=== PATIENT | male | born 1935 | race African-American/Black ===

== ENCOUNTER 2016-05-16 11:39 | Emergency (ER) | payer OTHER ==
[~2016-05-16] VITALS: Ht 185.4 cm; Wt 86.2 kg
--- NOTE | ~2016-05-16 | EKG ---
[address] [address] [employer] [place] [address] ELECTROCARDIOGRAM REPORT Name: GUY NUNEZ Room #: [facility]#: [id number] Admission: 05/16/16 Attend Phys: Discharge: Date of : 35 Report #: [id number] THIS REPORT FOR: //name// [facility] ED Test Date: 2016-05-16 Test Time: 11:48:11 Pat Name: GUY NUNEZ Department: Room: Gender: Eyelet Operator: Eric RBODY : 1935 Requested By: Mary Taylor Order Number: [id number] MD: Reynold Domínguez Measurements Intervals [place] Rate: 67 P: -1 [place]: 163 QRS: -6 QRSD: 105 T: 59 QT: 420 QTc: 444 Interpretive Statements Sinus rhythm Probable left atrial enlargement Abnormal R-wave progression, early transition Compared to ECG 05/03/2016 01:05:00 T-wave abnormality no longer present Electronically Signed On 05-16-2016 12:45:24 CDT by Reynold Domínguez [email or web address] <ELECTRONICALLY SIGNED> By: Reynold Domínguez MD 05/16/16 1245 1148 1148 MD DAVE Martinez
[~2016-05-16 11:39] MED LIST: AGGRENOX 25 MG1 EACH; AGGRENOX 25 MG1 EACH PO; AMLODIPINE BESY10 MG PO; ANTIFUNGAL15 G1 TP; ASPIR 8181 MG PO; BISACODYL SUPP10 MG RECTAL; CARVEDILOL12.5 MG PO; CARVEDILOL25 MG PO; CATAPRES0.2 MG PO; COLACE 100 MG100 MG PO; COLACE100 MG PO; DIDN'T BRING MEDS; FLOMAX0.4 MG PO; GLUCOTROL10 MG PO; GLUCOTROL5 MG PO; HYDRALAZINE 2525 MG; HYDRALAZINE 2525 MG PO; HYDROCHLOROTHIA25 M1 PO; KEPPRA 500 MG500 M1 PO; LASIX 40 MG TAB40 M2 PO; LIPITOR 20 MG T20 M1 PO; LIQUID ANTACID355 ML PO; LISINOPRIL20 MG PO; LISINOPRIL40 MG PO; MILK OF MA2400 MG/10 PO; NORVASC5 MG PO; PEPCID20 MG PO; PERCOCET PO; SENNA LAXATIVE1 EACH PO; SIMVASTATIN40 MG PO; TYLENOL325 MG PO
[2016-05-16 12:05] LABS: ABSOLUTE NEUTROPHILS 3.6 thou/uL (1.4-8.2); EOSINOPHILS 2.7 % (0.0-3.0); HEMOGLOBIN 16.1 gm/dL (14.0-18.0); LYMPHOCYTES 15.3 % (24.0-44.0); MCH 29.1 pg (26.0-34.0); MCHC 33.5 g/dL (28.0-37.0); MCV 86.8 fL (80.0-100.0); MONOCYTES 10.6 % (1.0-8.0); PLATELET COUNT 145 thou/uL (150-400); POLYS 70.4 % (36.0-66.0); RBC 5.53 mil/uL (4.50-6.00); RDW 13.9 % (10.5-14.5); WBC 5.1 thou/uL (4.0-11.0)
[2016-05-16 12:07] LABS: MANUAL DIFF NO
[2016-05-16 12:15] LABS: CALCIUM 9.6 mg/dL (8.5-10.1); CREATININE 1.2 mg/dL (0.6-1.3); POTASSIUM 3.7 mmol/L (3.5-5.1)
== END 2016-05-16 14:02 | disposition home or self-care (01) ==
LOC: ER 11:39
PROVIDERS: Emergency Medicine
DX: R55 Syncope and collapse (principal); I63.9 Cerebral infarction, unspecified; I10 Essential (primary) hypertension; E11.9 Type 2 diabetes mellitus without complications; K21.9 Gastro-esophageal reflux disease without esophagitis

== ENCOUNTER → 2016-05-29 | Outpatient (CLI) | payer OTHER | LOC: LAB 08:25 → LABMALL 13:40 → LAB 15:29 | DX: R41.3 Other amnesia (principal); R56.9 Unspecified convulsions; I63.9 Cerebral infarction, unspecified; F01.50 Vascular dementia, unspecified severity, without behavioral disturbance, psychotic disturbance, mood disturbance, and anxiety; I66.9 Occlusion and stenosis of unspecified cerebral artery ==

== ENCOUNTER 2016-07-15 15:56 | Emergency (ER) | payer OTHER ==
[~2016-07-15] VITALS: Ht 185.4 cm; Wt 90.7 kg
--- NOTE | ~2016-07-15 | EKG ---
[place] [address] [facility] [place] [address] ELECTROCARDIOGRAM REPORT Name: ENRIQUEGUY [place] [facility]: [facility]#: [id number] Admission: 07/15/16 Attend Phys: Discharge: 07/15/16 Date of : 35 Report #: [id number] THIS REPORT FOR: //name// [facility] ED Test Date: 2016-07-15 Test Time: 16:01:29 Pat Name: GUY NUNEZ Department: Room: Gender: M Lead Generator: [facility] : 1935 Requested By: Js Mantilla Order Number: [id number] MD: Richard Cohn Measurements Intervals [place] Rate: 69 P: -3 [place]: 168 QRS: -7 QRSD: 106 T: 71 QT: 415 QTc: 445 Interpretive Statements Sinus rhythm Probable left atrial enlargement Abnormal R-wave progression, early transition Minimal ST depression, lateral leads Compared to ECG 05/16/2016 11:48:11 No significant change was found Electronically Signed On 07-16-2016 7:48:04 CDT by Richard Cohn [email or web address] <ELECTRONICALLY SIGNED> By: Richard Cohn MD, [facility] 07/16/16 0748 1601 1601 Richard Cohn MD, [facility] /EPI
[2016-07-15 16:12] LABS: URINE BILIRUBIN NEGATIVE (Negative); URINE BLOOD TRACE (Negative); URINE COLOR YELLOW; URINE GLUCOSE-RANDOM* NEGATIVE (Negative); URINE KETONES NEGATIVE (Negative); URINE NITRITE NEGATIVE (Negative); URINE PROTEIN (DIPSTICK) TRACE (Negative); URINE SPECIFIC GRAVITY 1.015 (1.003-1.035); URINE UROBILINOGEN 0.2 E.U./dl (0.2-1.0)
[2016-07-15 16:20] LABS: AMP/METHAMP Negative (Negative); BARBITURATES Negative (Negative); BENZODIAZEPINES Negative (Negative); COCAINE Negative (Negative); METHADONE Negative (Negative); OPIATES Negative (Negative); PCP Negative (Negative); THC Negative (Negative)
[2016-07-15 16:38] LABS: HEMATOCRIT 50.3 % (42.0-52.0); HEMOGLOBIN 16.9 gm/dL (14.0-18.0); MCH 29.7 pg (26.0-34.0); MCHC 33.6 g/dL (28.0-37.0); MCV 88.3 fL (80.0-100.0); PLATELET COUNT 131 thou/uL (150-400); RBC 5.69 mil/uL (4.50-6.00); RDW 14.7 % (10.5-14.5); WBC 4.9 thou/uL (4.0-11.0)
[2016-07-15 16:39] LABS: MANUAL DIFF YES
[2016-07-15 16:45] LABS: ANION GAP 7 mmol/L (7-16); BUN 22 mg/dL (7-18); CALCIUM 9.6 mg/dL (8.5-10.1); CHLORIDE 106 mmol/L (98-107); CO2 27 mmol/L (21-32); CREATININE 1.3 mg/dL (0.7-1.3); GLUCOSE 101 mg/dL (74-106); POTASSIUM 4.3 mmol/L (3.5-5.1); SODIUM 140 mmol/L (136-145)
[2016-07-15 16:51] LABS: APTT 31.5 Seconds (24.5-32.8); INR 1.3; PROTIME 13.3 Seconds (9.3-11.4)
[2016-07-15 16:54] LABS: ALBUMIN 4.1 g/dL (3.4-5.0); ALKALINE PHOSPHATASE 70 U/L (46-116); MAGNESIUM 2.3 mg/dL (1.8-2.4); SGOT 17 U/L (15-37); SGPT 14 U/L (30-65); TOTAL BILIRUBIN 0.8 mg/dL (<0.1-1.0); TOTAL PROTEIN 8.3 g/dL (6.4-8.2); TROPONIN-I < 0.04 ng/mL (<0.04-0.07)
[2016-07-15] MEDS ORDERED: BUTALB-APAP-CA1 EACH PO (16:55)
[2016-07-15] MEDS ORDERED: CLONIDINE0.1 PO (16:55)
[2016-07-15 17:11] LABS: ABSOLUTE NEUTROPHILS 3.2 thou/uL (1.4-8.2); PLATELET ESTIMATE SLIGHTLY DECREASED; TOTAL CELL COUNT 100
== END 2016-07-15 19:37 | disposition home or self-care (01) ==
LOC: ER 15:56
PROVIDERS: Emergency Medicine
DX: I10 Essential (primary) hypertension (principal); R51 Headache; Z86.73 Personal history of transient ischemic attack (TIA), and cerebral infarction without residual deficits; E11.9 Type 2 diabetes mellitus without complications; K21.9 Gastro-esophageal reflux disease without esophagitis

== ENCOUNTER 2016-07-31 13:19 | Emergency (ER) | payer OTHER ==
[~2016-07-31] VITALS: Ht 185.4 cm; Wt 88.5 kg
[~2016-07-31 13:19] MED LIST changes: +BUTALB-APAP-CA1 EACH PO; +CLONIDINE0.1 PO
[2016-07-31] MEDS ORDERED: APAP500 PO (13:47)
[2016-07-31 14:14] LABS: HEMATOCRIT 46.3 % (42.0-52.0); HEMOGLOBIN 15.5 gm/dL (14.0-18.0); MCH 29.3 pg (26.0-34.0); MCHC 33.4 g/dL (28.0-37.0); MCV 87.5 fL (80.0-100.0); PLATELET COUNT 140 thou/uL (150-400); RBC 5.29 mil/uL (4.50-6.00); RDW 14.6 % (10.5-14.5); WBC 3.8 thou/uL (4.0-11.0)
[2016-07-31 14:15] LABS: MANUAL DIFF YES
[2016-07-31 14:21] LABS: CALCIUM 9.3 mg/dL (8.5-10.1); CREATININE 1.2 mg/dL (0.7-1.3); POTASSIUM 3.6 mmol/L (3.5-5.1)
[2016-07-31 14:37] LABS: ABSOLUTE NEUTROPHILS 2.3 thou/uL (1.4-8.2); TOTAL CELL COUNT 100
== END 2016-07-31 15:17 | disposition home or self-care (01) ==
LOC: ER 13:19
PROVIDERS: Physician Assistant
DX: R51 Headache (principal); I10 Essential (primary) hypertension; E11.9 Type 2 diabetes mellitus without complications; K21.9 Gastro-esophageal reflux disease without esophagitis; Z86.73 Personal history of transient ischemic attack (TIA), and cerebral infarction without residual deficits

== ENCOUNTER 2016-08-03 10:22 | Emergency (ER) | payer OTHER ==
[~2016-08-03] VITALS: Ht 185.4 cm; Wt 86.2 kg
[~2016-08-03 10:22] MED LIST changes: +APAP500 PO
== END 2016-08-03 11:22 | disposition home or self-care (01) ==
LOC: ER 10:22
DX: K59.00 Constipation, unspecified (principal); I10 Essential (primary) hypertension; E11.9 Type 2 diabetes mellitus without complications; K21.9 Gastro-esophageal reflux disease without esophagitis; Z86.73 Personal history of transient ischemic attack (TIA), and cerebral infarction without residual deficits

== ENCOUNTER → 2016-08-11 | Outpatient (CLI) | payer OTHER | LOC: MRI 08-04 12:37 | DX: G43.909 Migraine, unspecified, not intractable, without status migrainosus (principal); F03.90 Unspecified dementia, unspecified severity, without behavioral disturbance, psychotic disturbance, mood disturbance, and anxiety; R56.9 Unspecified convulsions ==

== ENCOUNTER 2016-08-20 02:13 | Observation (INO) | payer OTHER ==
[2016-08-20] VITALS (8 sets, daily range): BP systolic 150–198; BP diastolic 83–101
[~2016-08-20] VITALS: Ht 185.4 cm; Wt 87.5 kg
--- NOTE | ~2016-08-20 | EKG ---
[address] [address] ELECTROCARDIOGRAM REPORT Name: ALECCHRISGUY Room #: 464-P [facility] [id number] Admission: 08/20/16 Attend Phys: Lorene Bey Discharge: 08/21/16 Date of : 35 Report #: [id number] THIS REPORT FOR: //name// [facility] ED Test Date: 2016-08-20 Test Time: 02:25:27 Pat Name: GUY NUNEZ Department: Room: [facility] Gender: M Counter Server: RONNIE : 1935 Requested By: Buddy Ricks Order Number: [id number] MD: Keshawn Foley Measurements Intervals [place] Rate: 63 P: 32 [place]: 174 QRS: -14 QRSD: 102 T: 80 QT: 428 QTc: 439 Interpretive Statements Sinus rhythm Probable left atrial enlargement Electronically Signed On 08-21-2016 13:48:36 CDT by Keshawn Foley [email or web address] <ELECTRONICALLY SIGNED> By: Keshawn Foley MD 08/21/16 1348 0225 4 MD DAVE Jasmine
[2016-08-20] MEDS ORDERED: ZOFRAN ODT4 MG PO (02:26)
[2016-08-20] MEDS ORDERED: LISINOPRIL40 MG PO (02:26)
[2016-08-20] MEDS ORDERED: PEPCID20 MG PO (02:26)
[2016-08-20] MEDS ORDERED: NEURONTIN 300300 M1 PO (02:27)
[2016-08-20] MEDS ORDERED: ATORVASTATIN CA40 MG PO (02:27)
[2016-08-20] MEDS ORDERED: CARVEDILOL25 MG PO (02:27)
[2016-08-20] MEDS ORDERED: ASPIRIN-DIPYRI1 EACH PO (02:27)
[2016-08-20 02:28] LABS: HEMATOCRIT 46.6 % (42.0-52.0); HEMOGLOBIN 15.4 gm/dL (14.0-18.0); MCH 28.9 pg (26.0-34.0); MCV 87.6 fL (80.0-100.0); PLATELET COUNT 134 thou/uL (150-400); RBC 5.32 mil/uL (4.50-6.00); RDW 14.7 % (10.5-14.5); WBC 4.7 thou/uL (4.0-11.0)
[2016-08-20 02:30] LABS: MANUAL DIFF YES
[2016-08-20 02:36] LABS: ANION GAP 8 mmol/L (7-16); BUN 19 mg/dL (7-18); CALCIUM 9.2 mg/dL (8.5-10.1); CHLORIDE 106 mmol/L (98-107); CO2 27 mmol/L (21-32); CREATININE 1.2 mg/dL (0.7-1.3); GLUCOSE 103 mg/dL (74-106); POTASSIUM 3.8 mmol/L (3.5-5.1); SODIUM 141 mmol/L (136-145)
[2016-08-20 02:43] LABS: ALBUMIN 3.8 g/dL (3.4-5.0); ALKALINE PHOSPHATASE 77 U/L (46-116); MAGNESIUM 2.1 mg/dL (1.8-2.4); SGOT 14 U/L (15-37); SGPT 16 U/L (30-65); TOTAL BILIRUBIN 0.8 mg/dL (<0.1-1.0); TOTAL PROTEIN 7.5 g/dL (6.4-8.2); TROPONIN-I < 0.04 ng/mL (<0.04-0.07)
[2016-08-20 02:50] LABS: ANISOCYTOSIS SLIGHT; TOTAL CELL COUNT 100
[2016-08-20] MEDS ORDERED: KEPPRA 500 MG500 M1 PO (04:11)
[2016-08-20] MEDS ORDERED: ASPIR 8181 M1 PO (04:11)
[2016-08-21 00:45] VITALS: BP 150/87
[2016-08-21 00:50] VITALS: BP 166/88
[2016-08-21 04:29] VITALS: BP 157/78
[2016-08-21 08:07] VITALS: BP 148/73
[2016-08-21] MEDS ORDERED: ZOFRAN ODT4 MG PO (09:49)
[2016-08-21] MEDS ORDERED: PEPCID20 MG PO (09:49)
[2016-08-21] MEDS ORDERED: LISINOPRIL40 MG PO (09:50)
[2016-08-21] MEDS ORDERED: ASPIRIN-DIPYRI1 EACH PO (09:50)
[2016-08-21] MEDS ORDERED: CARVEDILOL25 MG PO (09:50)
[2016-08-21] MEDS ORDERED: NEURONTIN 300300 M1 PO (09:50)
[2016-08-21] MEDS ORDERED: ASPIR 8181 M1 PO (09:50)
[2016-08-21] MEDS ORDERED: KEPPRA 500 MG500 M1 PO (09:50)
[2016-08-21] MEDS ORDERED: HYDRALAZINE 2525 MG PO (09:51)
[2016-08-21] MEDS ORDERED: ATORVASTATIN CA40 MG PO (09:51)
[2016-08-21 10:10] VITALS: BP 148/73
[2016-08-21 12:15] VITALS: BP 163/86
== END 2016-08-21 13:35 | disposition home or self-care (01) ==
LOC: ER 02:13 → EROBS 02:54 → 4W 02:54 → EROBS 02:54 → 4W 03:15
PROVIDERS: Emergency Medicine
DX: I63.9 Cerebral infarction, unspecified (principal); I10 Essential (primary) hypertension; R56.9 Unspecified convulsions; E11.9 Type 2 diabetes mellitus without complications; K21.9 Gastro-esophageal reflux disease without esophagitis; K59.00 Constipation, unspecified

== ENCOUNTER → 2016-10-22 | Outpatient (CLI) | payer OTHER ==
[~2016-10-22] MED LIST changes: +ASPIR 8181 M1 PO; +ASPIRIN-DIPYRI1 EACH PO; +ATORVASTATIN CA40 MG PO; +NEURONTIN 300300 M1 PO; +ZOFRAN ODT4 MG PO
== END ==
LOC: ULTRA 09:46
DX: I63.9 Cerebral infarction, unspecified (principal)

== ENCOUNTER → 2017-11-29 | Outpatient (CLI) | payer OTHER | LOC: MRI 09:23 → CAT 10:15 | DX: G45.9 Transient cerebral ischemic attack, unspecified (principal); I67.82 Cerebral ischemia; I63.9 Cerebral infarction, unspecified; G62.9 Polyneuropathy, unspecified; R56.9 Unspecified convulsions; R26.9 Unspecified abnormalities of gait and mobility; R90.89 Other abnormal findings on diagnostic imaging of central nervous system; I10 Essential (primary) hypertension; E11.9 Type 2 diabetes mellitus without complications; K21.9 Gastro-esophageal reflux disease without esophagitis; Z86.73 Personal history of transient ischemic attack (TIA), and cerebral infarction without residual deficits ==

== ENCOUNTER 2018-06-11 15:37 | Emergency (ER) | payer OTHER ==
[~2018-06-11] VITALS: Ht 188 cm; Wt 95.3 kg
[2018-06-11 17:05] LABS: ANION GAP 8 mmol/L (7-16); BUN 24 mg/dL (7-18); CALCIUM 9.7 mg/dL (8.5-10.1); CHLORIDE 104 mmol/L (98-107); CO2 29 mmol/L (21-32); CREATININE 1.3 mg/dL (0.7-1.3); GLUCOSE 89 mg/dL (74-106); POTASSIUM 3.9 mmol/L (3.5-5.1); SODIUM 141 mmol/L (136-145)
[2018-06-11 17:14] LABS: MAGNESIUM 2.1 mg/dL (1.8-2.4); TROPONIN-I <0.06 ng/mL (<0.06)
[2018-06-11 17:24] LABS: URINE BILIRUBIN NEGATIVE (Negative); URINE BLOOD NEGATIVE (Negative); URINE CLARITY CLEAR; URINE COLOR YELLOW; URINE GLUCOSE-RANDOM* NEGATIVE (Negative); URINE KETONES NEGATIVE (Negative); URINE LEUKOCYTES-REFLEX NEGATIVE (Negative); URINE NITRITE-REFLEX NEGATIVE (Negative); URINE PROTEIN (DIPSTICK) NEGATIVE (Negative); URINE SPECIFIC GRAVITY 1.025 (1.005-1.035); URINE UROBILINOGEN 0.2 E.U./dl (0.2-1.0)
[2018-06-11 17:36] LABS: HEMOGLOBIN 16.4 gm/dL (14.0-18.0); RBC 5.64 mil/uL (4.50-6.00); WBC 4.9 thou/uL (4.0-11.0)
[2018-06-11 17:37] LABS: HEMATOCRIT 49.7 % (42.0-52.0); MCH 29.1 pg (26.0-34.0); MCHC 33.1 % (28.0-37.0); PLATELET COUNT 143 thou/uL (150-400); RDW 14.6 % (10.5-14.5)
[2018-06-11 19:01] VITALS: BP 151/84
--- NOTE | 2018-06-12 10:35 | EKG ---
[place] [address] [address] [place] [address] ELECTROCARDIOGRAM REPORT Name: GUY NUNEZ Room #: DEP CLAUDIA Horowitz#: [id number] ������������������ Admission: 06/11/18 ������������������ Attend Phys: Discharge: 06/11/18 ������������������ Date of : 35 Report #: [id number] ����������������������������������������������������������������� [id number] THIS REPORT FOR: //name// [facility] ED Test Date: 2018-06-11 Test Time: 16:26:52 Pat Name: GUY NUNEZ Department: Room: Gender: M Dining Host: : 1935 Requested By: Ronal Becerra Order Number: [id number] MD: Reynold Domínguez Measurements Intervals [place] Rate: 64 P: 1 MT: 175 QRS: -13 QRSD: 103 T: 58 QT: 427 QTc: 441 Interpretive Statements Sinus rhythm Probable left atrial enlargement Early R to S wave transition Compared to ECG 08/24/2016 10:46:31 No significant change Electronically Signed On 06-12-2018 10:34:52 CDT by Reynold Domínguez [email or web address] ��������������������������������������������� <ELECTRONICALLY SIGNED> ���������������������������������������� By: Reynold Domínguez MD ��������������������������������������������� 06/12/18 1034 1626 1626 MD DAVE Martinez
== END 2018-06-11 19:02 | disposition home or self-care (01) ==
LOC: ER 15:37
PROVIDERS: Emergency Medicine
DX: S09.90XA Unspecified injury of head, initial encounter (principal); I10 Essential (primary) hypertension; E11.9 Type 2 diabetes mellitus without complications; K21.9 Gastro-esophageal reflux disease without esophagitis; Z86.73 Personal history of transient ischemic attack (TIA), and cerebral infarction without residual deficits; Z79.899 Other long term (current) drug therapy; W18.30XA Fall on same level, unspecified, initial encounter; Y93.89 Activity, other specified; Y92.89 Other specified places as the place of occurrence of the external cause; Y99.8 Other external cause status

== ENCOUNTER 2018-10-22 20:16 | Emergency (ER) | payer OTHER ==
[~2018-10-22] VITALS: Ht 188 cm; Wt 98.4 kg
[2018-10-22 20:27] VITALS: BP 115/76
[2018-10-22] MEDS ORDERED: PERIDEX15 ML PO (20:41)
[2018-10-22] MEDS ORDERED: PENICILLIN VK500 M1 PO (20:41)
[2018-10-22] MEDS ORDERED: TRAMADOL 50 MG50 MG PO (20:41)
== END 2018-10-22 21:07 | disposition home or self-care (01) ==
LOC: ER 20:16
DX: K05.10 Chronic gingivitis, plaque induced (principal); K02.9 Dental caries, unspecified; I10 Essential (primary) hypertension; E11.9 Type 2 diabetes mellitus without complications; K21.9 Gastro-esophageal reflux disease without esophagitis; Z86.73 Personal history of transient ischemic attack (TIA), and cerebral infarction without residual deficits

== ENCOUNTER 2019-03-07 18:23 | Emergency (ER) | payer OTHER ==
[~2019-03-07] VITALS: Ht 185.4 cm; Wt 94.8 kg
[~2019-03-07 18:23] MED LIST changes: +PENICILLIN VK500 M1 PO; +PERIDEX15 ML PO; +TRAMADOL 50 MG50 MG PO
[2019-03-07 19:00] LABS: URINE BILIRUBIN NEGATIVE (Negative); URINE BLOOD NEGATIVE (Negative); URINE CLARITY CLEAR; URINE COLOR YELLOW; URINE GLUCOSE-RANDOM* NEGATIVE (Negative); URINE KETONES NEGATIVE (Negative); URINE LEUKOCYTES-REFLEX NEGATIVE (Negative); URINE NITRITE-REFLEX NEGATIVE (Negative); URINE PROTEIN (DIPSTICK) NEGATIVE (Negative); URINE SPECIFIC GRAVITY 1.025 (1.005-1.035)
[2019-03-07 23:01] LABS: HEMATOCRIT 50.3 % (42.0-52.0); HEMOGLOBIN 16.4 gm/dL (14.0-18.0); MCHC 32.6 g/dL (28.0-37.0); MCV 89.1 fL (80.0-100.0); PLATELET COUNT 144 thou/uL (150-400); RBC 5.65 mil/uL (4.50-6.00); RDW 14.6 % (10.5-14.5); WBC 4.1 thou/uL (4.0-11.0)
[2019-03-07 23:17] LABS: ANION GAP 9 mmol/L (7-16); BUN 25 mg/dL (7-18); CALCIUM 9.5 mg/dL (8.5-10.1); CHLORIDE 103 mmol/L (98-107); CO2 29 mmol/L (21-32); CREATININE 1.2 mg/dL (0.7-1.3); GLUCOSE 77 mg/dL (74-106); POTASSIUM 3.8 mmol/L (3.5-5.1); SODIUM 141 mmol/L (136-145)
[2019-03-07 23:27] LABS: ALBUMIN 3.9 g/dL (3.4-5.0); MAGNESIUM 2.2 mg/dL (1.8-2.4); SGOT 20 U/L (15-37); SGPT 18 U/L (30-65); TROPONIN-I <0.06 ng/mL (<0.06)
[2019-03-08 00:36] LABS: PLATELET ESTIMATE DECREASED
[2019-03-08 00:41] VITALS: BP 128/86
--- NOTE | 2019-03-09 17:14 | EKG ---
[place] [address] [facility] [place] [address] ELECTROCARDIOGRAM REPORT Name: ALECCHRISGUY Room #: [facility] CLAUDIA Horowitz#: [id number] Admission: 03/07/19 Attend Phys: Discharge: 03/08/19 Date of : 35 Report #: [id number] THIS REPORT FOR: //name// [facility] ED Test Date: 2019-03-07 Test Time: 21:57:55 Pat Name: GUY NUNEZ Department: Room: Gender: Net Coordinator: LA NENA : 1935 Requested By: Js Mantilla Order Number: [id number] MD: Keshawn Foley Measurements Intervals [place] Rate: 54 P: 13 CT: 184 QRS: -14 QRSD: 106 T: 9 QT: 459 QTc: 435 Interpretive Statements Sinus rhythm Probable left atrial enlargement Left ventricular hypertrophy Compared to ECG 06/11/2018 16:26:52 Left ventricular hypertrophy now present Electronically Signed On 03-09-2019 17:13:20 SURVEY RESEARCH ANALYST by Keshawn Foley [email or web address] <ELECTRONICALLY SIGNED> By: Keshawn Foley MD 03/09/19 1713 56 56 Keshawn Foley MD /ELLA
== END 2019-03-08 00:45 | disposition home or self-care (01) ==
LOC: ER 18:23
PROVIDERS: Emergency Medicine
DX: R42 Dizziness and giddiness (principal); I10 Essential (primary) hypertension; E11.9 Type 2 diabetes mellitus without complications; K21.9 Gastro-esophageal reflux disease without esophagitis; R56.9 Unspecified convulsions; Z86.73 Personal history of transient ischemic attack (TIA), and cerebral infarction without residual deficits

== ENCOUNTER → 2019-04-21 | Outpatient (CLI) | payer OTHER | LOC: SJCVCIMAG 08:32 | DX: I87.2 Venous insufficiency (chronic) (peripheral) (principal); M79.662 Pain in left lower leg; M79.89 Other specified soft tissue disorders ==

== ENCOUNTER 2019-06-15 19:18 | Emergency (ER) | payer OTHER ==
[~2019-06-15] VITALS: Ht 188 cm; Wt 95.3 kg
[2019-06-15 20:20] LABS: ABSOLUTE NEUTROPHILS 5.6 thou/uL (1.4-8.2); BASOPHILS 0.5 % (0.0-2.0); EOSINOPHILS 2.4 % (0.0-3.0); HEMATOCRIT 56.3 % (42.0-52.0); HEMOGLOBIN 19.1 gm/dL (14.0-18.0); LYMPHOCYTES 8.8 % (24.0-44.0); MCH 29.9 pg (26.0-34.0); MCHC 33.9 g/dL (28.0-37.0); MCV 88.5 fL (80.0-100.0); MONOCYTES 5.6 % (1.0-8.0); PLATELET COUNT 200 thou/uL (150-400); POLYS 82.7 % (36.0-66.0); RBC 6.37 mil/uL (4.50-6.00); RDW 14.2 % (10.5-14.5); WBC 6.8 thou/uL (4.0-11.0)
[2019-06-15 20:36] LABS: CALCIUM 9.7 mg/dL (8.5-10.1); CREATININE 1.3 mg/dL (0.7-1.3); POTASSIUM 5.2 mmol/L (3.5-5.1)
[2019-06-15 20:40] LABS: ALBUMIN 4.5 g/dL (3.4-5.0); TOTAL BILIRUBIN 1.1 mg/dL (<0.1-1.0); TOTAL PROTEIN 9.3 g/dL (6.4-8.2)
[2019-06-15 21:31] VITALS: BP 113/94
--- NOTE | 2019-06-17 11:48 | EKG ---
[facility] [place] [address] ELECTROCARDIOGRAM REPORT Name: GUY NUNEZ Room #: DEP MYvonne#: [id number] Admission: 06/15/19 Attend Phys: Discharge: 06/15/19 Date of : 35 Report #: [id number] THIS REPORT FOR: cc: Deloris Sanchez MD, Constance M. MD Couchonnal, Luis F. MD ~ THIS REPORT FOR: //name// [facility] ED Test Date: 2019-06-15 Test Time: 19:39:43 Pat Name: GUY NUNEZ Department: Room: Gender: Food Service Worker: jeannine gonzales : 1935 Requested By: Charles Sanchez Order Number: [id number] : Keshawn Foley Measurements Intervals [place] Rate: 91 P: 2 [place]: 182 QRS: -13 QRSD: 103 T: 50 QT: 375 QTc: 462 Interpretive Statements Sinus rhythm Probable left atrial enlargement Abnormal R-wave progression, early transition Compared to ECG 03/07/2019 21:57:55 Left ventricular hypertrophy no longer present Electronically Signed On 06-17-2019 11:46:27 CDT by Keshawn Foley [email or web address] <ELECTRONICALLY SIGNED> By: Keshawn Foley MD 06/17/19 1146 38 38 Keshawn Foley MD /EPI
== END 2019-06-15 21:34 | disposition home or self-care (01) ==
LOC: ER 19:18
PROVIDERS: Emergency Medicine
DX: R10.13 Epigastric pain (principal); R11.10 Vomiting, unspecified; I10 Essential (primary) hypertension; K21.9 Gastro-esophageal reflux disease without esophagitis; E11.9 Type 2 diabetes mellitus without complications; Z86.73 Personal history of transient ischemic attack (TIA), and cerebral infarction without residual deficits

== ENCOUNTER → 2019-07-11 | Outpatient (CLI) | payer OTHER | LOC: MRI 10:06 | DX: I67.82 Cerebral ischemia (principal); G31.9 Degenerative disease of nervous system, unspecified; R26.9 Unspecified abnormalities of gait and mobility; G93.89 Other specified disorders of brain; J32.9 Chronic sinusitis, unspecified ==

== ENCOUNTER 2019-07-21 19:57 | Inpatient (IN) | payer OTHER ==
[~2019-07-21] VITALS: Ht 188 cm; Wt 96.2 kg
[2019-07-21 19:58] VITALS: BP 201/127
[2019-07-21 21:01] LABS: URINE BILIRUBIN NEGATIVE (Negative); URINE BLOOD 1+ (Negative); URINE CLARITY CLEAR; URINE COLOR YELLOW; URINE GLUCOSE-RANDOM* NEGATIVE (Negative); URINE KETONES 1+ (Negative); URINE LEUKOCYTES-REFLEX NEGATIVE (Negative); URINE NITRITE-REFLEX NEGATIVE (Negative); URINE PROTEIN (DIPSTICK) 2+ (Negative); URINE SPECIFIC GRAVITY 1.025 (1.005-1.035)
[2019-07-21 21:18] LABS: SQUAMOUS 0-3 Few /LPF (0-3); URINE RBC 3-10 Few /HPF (0-2); URINE WBC-REFLEX 0-5 Rare /HPF (0-5)
[2019-07-21 21:19] LABS: BACTERIA-REFLEX 1-9 Few /HPF (None Seen); CASTS None Seen /LPF (None Seen); CRYSTALS None Seen /LPF (None Seen); MUCUS 0-3 Light strn/LPF (None Seen)
[2019-07-21 21:31] LABS: ABSOLUTE NEUTROPHILS 5.3 thou/uL (1.4-8.2); BASOPHILS 0.3 % (0.0-2.0); EOSINOPHILS 0.9 % (0.0-3.0); HEMOGLOBIN 17.9 gm/dL (14.0-18.0); MCH 29.8 pg (26.0-34.0); MCHC 33.8 g/dL (28.0-37.0); MCV 88.2 fL (80.0-100.0); MONOCYTES 5.5 % (1.0-8.0); PLATELET COUNT 152 thou/uL (150-400); POLYS 84.3 % (36.0-66.0); RBC 6.01 mil/uL (4.50-6.00); RDW 14.2 % (10.5-14.5); WBC 6.2 thou/uL (4.0-11.0)
[2019-07-21 21:38] LABS: ANION GAP 8 mmol/L (7-16); BUN 21 mg/dL (7-18); CALCIUM 9.5 mg/dL (8.5-10.1); CHLORIDE 100 mmol/L (98-107); CO2 29 mmol/L (21-32); CREATININE 1.3 mg/dL (0.7-1.3); GLUCOSE 104 mg/dL (74-106); POTASSIUM 3.6 mmol/L (3.5-5.1); SODIUM 137 mmol/L (136-145)
[2019-07-21 21:49] LABS: ALBUMIN 4.1 g/dL (3.4-5.0); DIRECT BILIRUBIN < 0.1 mg/dL (<0.1-0.2); LIPASE 69 U/L (73-393); SGOT 20 U/L (15-37); SGPT 18 U/L (30-65); TOTAL BILIRUBIN 1.1 mg/dL (0.2-1.0); TOTAL PROTEIN 8.4 g/dL (6.4-8.2); TROPONIN-I <0.06 ng/mL (<0.06)
--- NOTE | 2019-07-21 23:32 | NUR ---
UPDATED HIS BEAR ON PATIENT CONDITION. EXPLAINED WHAT A BOWEL OBSTRUCTION IS, CURRENT PLAN FOR CARE. I MADE SURE PATIENT HAD HIS CELLPHONE ON HIM SO SHE CAN CALL.
[2019-07-22 01:08] VITALS: BP 144/91
--- NOTE | 2019-07-22 01:08 | NUR ---
HANDOFF TOOL SENT
[2019-07-22 01:16] VITALS: BP 148/92
[2019-07-22 02:01] VITALS: BP 168/108
[2019-07-22] MEDS ORDERED: CARVEDILOL25 MG PO (03:19)
[2019-07-22 03:44] VITALS: BP 166/97
--- NOTE | 2019-07-22 05:50 | NUR ---
Pt. arrived to the unit from the emergency room accompanied by staff. He is alert and oriented, but forgetful. Admission assessment and history is com- pleted. Pt. offers no c/o pain or nausea. He can stand up and use the urinal with assistance.
[2019-07-22 07:40] VITALS: BP 133/81
[2019-07-22 08:46] VITALS: BP 133/81
--- NOTE | 2019-07-22 09:35 | EKG ---
[facility] [place] [address] [place] [address] ELECTROCARDIOGRAM REPORT Name: GUY NUNEZ Room #: 461- ADM IN M.R.#: [id number] Admission: 07/22/19 Attend Phys: Edilberto Hoffman MD Discharge: Date of : 35 Report #: [id number] THIS REPORT FOR: cc: Deloris Sanchez MD, Constance M. MD Couchonnal, Luis F. MD ~ THIS REPORT FOR: //name// [facility] ED Test Date: 2019-07-21 Test Time: 21:19:51 Pat Name: GUY NUNEZ Department: Room: 46 Gender: M Professor Of Counseling: lissett camacho rn : 1935 Requested By: Mary Taylor Order Number: [id number] MD: Keshawn Foley Measurements Intervals [place] Rate: 94 P: -5 [place]: 183 QRS: -27 QRSD: 99 T: 20 QT: 367 QTc: 459 Interpretive Statements Sinus rhythm Atrial premature complex Probable left atrial enlargement Borderline left axis deviation Abnormal R-wave progression, early transition Compared to ECG 06/15/2019 19:39:43 Atrial premature complex(es) now present Electronically Signed On 07-22-2019 9:33:53 CDT by Keshawn Foley [email or web address] <ELECTRONICALLY SIGNED> By: Keshawn Foley MD 07/22/1933 18 18 Keshawn Foley MD /EPI
[2019-07-22] MEDS ORDERED: MIRALAX17 GM PO (13:24)
--- NOTE | 2019-07-22 15:40 | NUR ---
PT IS AOX4, VSS, NO C/O PAIN. PT TOLERATING CLEAR AND SOFT DIET WITHOUT ANY ISSUES. PT UP AD JOSELINE IN ROOM, RECEIVED ANTIBIOTIC VIA IV. PT RECEIVED ORDERS TO DC HOME. NO SURGERY NEEDED. PT RECEIVED DC INSTRUCTIONS AND PRESCRIPTION. IV PULLED AND PICKED PT UP IN ER. WILL CONTINUE TO MONITOR FOR SAFETY.
== END 2019-07-22 15:30 | disposition home or self-care (01) | DRG 394 ==
LOC: ER 19:57 → EROBS 07-22 00:42 → 4W 07-22 01:22
PROVIDERS: Emergency Medicine; ADMIT Hospitalist
DX: K40.30 Unilateral inguinal hernia, with obstruction, without gangrene, not specified as recurrent (principal); J98.11 Atelectasis; E11.9 Type 2 diabetes mellitus without complications; K21.9 Gastro-esophageal reflux disease without esophagitis; I10 Essential (primary) hypertension; E78.5 Hyperlipidemia, unspecified; R56.9 Unspecified convulsions; Z79.82 Long term (current) use of aspirin; Z86.73 Personal history of transient ischemic attack (TIA), and cerebral infarction without residual deficits; Z79.899 Other long term (current) drug therapy
CPT/HCPCS: 10040

== ENCOUNTER 2019-08-30 04:10 | Emergency (ER) | payer OTHER ==
[~2019-08-30] VITALS: Ht 188 cm; Wt 93.9 kg
[~2019-08-30 04:10] MED LIST changes: +ANORO ELLIPTA1 EACH INH; +ASA81BEC PO; +FISH OIL 1,2001 EAC4 PO; +FUROSEMIDE 20 M20 M1 PO; +KEPPRA XR500 MG PO; +LIPITOR40 MG PO; +MIRALAX17 GM PO; +NEURONTIN 300M300 M2 PO; +VITAMIN B122500 MCG PO; +ZESTRIL40 MG PO
[2019-08-30 04:47] LABS: URINE BILIRUBIN NEGATIVE (Negative); URINE BLOOD TRACE (Negative); URINE CLARITY CLEAR; URINE COLOR YELLOW; URINE GLUCOSE-RANDOM* NEGATIVE (Negative); URINE KETONES NEGATIVE (Negative); URINE LEUKOCYTES-REFLEX NEGATIVE (Negative); URINE NITRITE-REFLEX NEGATIVE (Negative); URINE PROTEIN (DIPSTICK) NEGATIVE (Negative); URINE UROBILINOGEN 0.2 E.U./dl (0.2-1.0)
[2019-08-30 05:14] LABS: HEMOGLOBIN 16.5 gm/dL (14.0-18.0); RBC 5.64 mil/uL (4.50-6.00)
[2019-08-30 05:15] LABS: HEMATOCRIT 50.7 % (42.0-52.0); MCH 29.3 pg (26.0-34.0); MCHC 32.6 g/dL (28.0-37.0); MCV 89.9 fL (80.0-100.0); PLATELET COUNT 160 thou/uL (150-400); RDW 14.5 % (10.5-14.5); WBC 5.8 thou/uL (4.0-11.0)
[2019-08-30 05:17] LABS: CALCIUM 9.5 mg/dL (8.5-10.1); CREATININE 1.2 mg/dL (0.7-1.3); POTASSIUM 3.4 mmol/L (3.5-5.1)
[2019-08-30 05:24] LABS: ALBUMIN 3.9 g/dL (3.4-5.0); TOTAL BILIRUBIN 0.8 mg/dL (0.2-1.0); TOTAL PROTEIN 7.6 g/dL (6.4-8.2)
[2019-08-30 05:46] VITALS: BP 162/91
[2019-08-30 06:03] LABS: ABSOLUTE NEUTROPHILS 3.1 thou/uL (1.4-8.2); PLATELET ESTIMATE NORMAL
[2019-08-30] MEDS ORDERED: LORCET 5-325 M1 EACH PO (09:07)
--- NOTE | 2019-08-30 14:30 | EKG ---
[facility] [place] [address] ELECTROCARDIOGRAM REPORT Name: GUY NUNEZ [id number] Admission: 08/30/19 Attend Phys: Discharge: 08/30/19 Date of : 35 Report #: [id number] THIS REPORT FOR: cc: Deloris Sanchez MD, Constance M. MD Couchonnal, Luis F. MD ~ THIS REPORT FOR: //name// [facility] ED Test Date: 2019-08-30 Test Time: 04:40:23 Pat Name: GUY NUNEZ Department: Room: Gender: Grain Origination Specialist: : 1935 Requested By: Charles Oliver Order Number: [id number] : Keshawn Foley Measurements Intervals [place] Rate: 73 P: -5 [place]: 175 QRS: -18 QRSD: 108 T: 14 QT: 408 QTc: 450 Interpretive Statements Sinus rhythm Probable left atrial enlargement Borderline left axis deviation Abnormal R-wave progression, early transition Compared to ECG 07/21/2019 21:19:51 Atrial premature complex(es) no longer present Electronically Signed On 08-30-2019 14:30:07 CDT by Keshawn Foley [email or web address] <ELECTRONICALLY SIGNED> By: Keshawn Foley MD 08/30/19 1430 044 0440 Keshawn Foley MD /EPI
== END 2019-08-30 05:47 | disposition home or self-care (01) ==
LOC: ER 04:10
PROVIDERS: Emergency Medicine
DX: R53.1 Weakness (principal); I10 Essential (primary) hypertension; E78.5 Hyperlipidemia, unspecified; Z86.73 Personal history of transient ischemic attack (TIA), and cerebral infarction without residual deficits; Z79.82 Long term (current) use of aspirin; Z79.899 Other long term (current) drug therapy

== ENCOUNTER 2020-01-14 16:21 | Emergency (ER) | payer OTHER ==
[~2020-01-14] VITALS: Ht 188 cm; Wt 93.9 kg
[~2020-01-14 16:21] MED LIST changes: +LORCET 5-325 M1 EACH PO
[2020-01-14 17:15] LABS: HEMATOCRIT 48.1 % (42.0-52.0); HEMOGLOBIN 16.1 gm/dL (14.0-18.0); MCH 29.3 pg (26.0-34.0); MCHC 33.4 g/dL (28.0-37.0); MCV 87.6 fL (80.0-100.0); PLATELET COUNT 132 thou/uL (150-400); RBC 5.49 mil/uL (4.50-6.00); RDW 14.4 % (10.5-14.5); WBC 4.4 thou/uL (4.0-11.0)
[2020-01-14 17:21] LABS: ANION GAP 7 mmol/L (7-16); BUN 28 mg/dL (7-18); CALCIUM 9.4 mg/dL (8.5-10.1); CHLORIDE 105 mmol/L (98-107); CO2 27 mmol/L (21-32); CREATININE 1.3 mg/dL (0.7-1.3); GLUCOSE 96 mg/dL (74-106); POTASSIUM 4.6 mmol/L (3.5-5.1); SODIUM 139 mmol/L (136-145)
[2020-01-14 17:28] LABS: APTT 28.5 Seconds (24.5-32.8); INR 1.1; PROTIME 11.2 Seconds (9.3-11.4)
[2020-01-14 17:30] LABS: ALBUMIN 3.6 g/dL (3.4-5.0); SGOT 22 U/L (15-37); SGPT 13 U/L (30-65); TOTAL BILIRUBIN 0.6 mg/dL (0.2-1.0); TOTAL PROTEIN 7.8 g/dL (6.4-8.2); TROPONIN-I <0.06 ng/mL (<0.06)
[2020-01-14 17:51] LABS: ABSOLUTE NEUTROPHILS 2.1 thou/uL (1.4-8.2); ATYPICAL LYMPHS 3 %
[2020-01-14 18:16] VITALS: BP 139/97
--- NOTE | 2020-01-15 07:15 | EKG ---
[facility] [place] [address] ELECTROCARDIOGRAM REPORT Name: GUY NUNEZ Room #: [facility]#: [id number] Admission: 01/14/20 Attend Phys: Discharge: 01/14/20 Date of : 35 Report #: [id number] THIS REPORT FOR: cc: Deloris Sanchez MD, Constance M. MD Santiago, Patrick MD [facility] ~ THIS REPORT FOR: //name// [facility] ED Test Date: 2020-01-14 Test Time: 16:55:42 Pat Name: GUY NUNEZ Department: Room: Gender: Manager Audio: SITA : 1935 Requested By: Lidia Schwartz Order Number: [id number] MD: Mahesh Trivedi Measurements Intervals [place] Rate: 65 P: 26 WI: 184 QRS: -1 QRSD: 103 T: 47 QT: 423 QTc: 440 Interpretive Statements Sinus rhythm Baseline wander in lead(s) I,III,aVL Compared to ECG 08/30/2019 04:40:23 ST (T wave) deviation now present Electronically Signed On 01-15-2020 7:15:20 DIRECTOR MEDICAL by Mahesh Trivedi [email or web address] <ELECTRONICALLY SIGNED> By: Mahesh Trivedi MD, FACC 01/15/20 0715 1655 1655 Mahesh Trivedi MD, [facility] /EPI
== END 2020-01-14 18:55 | disposition home or self-care (01) ==
LOC: ER 16:21
PROVIDERS: Physician Assistant
DX: R51.9 Headache, unspecified (principal); I10 Essential (primary) hypertension; E78.5 Hyperlipidemia, unspecified; E11.9 Type 2 diabetes mellitus without complications; Z79.82 Long term (current) use of aspirin; Z79.899 Other long term (current) drug therapy

== ENCOUNTER 2020-04-18 16:09 | Emergency (ER) | payer OTHER ==
[~2020-04-18] VITALS: Ht 188 cm; Wt 94.3 kg
[2020-04-18 17:29] LABS: HEMATOCRIT 48.7 % (42.0-52.0); MCH 28.8 pg (26.0-34.0); MCHC 32.9 g/dL (28.0-37.0); MCV 87.4 fL (80.0-100.0); RBC 5.58 mil/uL (4.50-6.00)
[2020-04-18 17:38] LABS: CALCIUM 9.3 mg/dL (8.5-10.1); CREATININE 1.4 mg/dL (0.7-1.3); POTASSIUM 4.3 mmol/L (3.5-5.1)
== END 2020-04-18 18:45 | disposition home or self-care (01) ==
LOC: ER 16:09
PROVIDERS: Physician Assistant
DX: R04.0 Epistaxis (principal); I10 Essential (primary) hypertension; E78.5 Hyperlipidemia, unspecified; Z79.899 Other long term (current) drug therapy; Z79.82 Long term (current) use of aspirin

== ENCOUNTER 2020-06-25 14:49 | Emergency (ER) | payer OTHER ==
[~2020-06-25] VITALS: Ht 198.1 cm; Wt 93.0 kg
[2020-06-25 15:43] LABS: ABSOLUTE NEUTROPHILS 2.7 thou/uL (1.4-8.2); BASOPHILS 1.2 % (0.0-2.0); EOSINOPHILS 7.5 % (0.0-3.0); HEMATOCRIT 50.2 % (42.0-52.0); HEMOGLOBIN 16.8 gm/dL (14.0-18.0); LYMPHOCYTES 17.4 % (24.0-44.0); MCH 29.6 pg (26.0-34.0); MCHC 33.4 g/dL (28.0-37.0); MCV 88.5 fL (80.0-100.0); MONOCYTES 14.7 % (1.0-8.0); PLATELET COUNT 124 thou/uL (150-400); POLYS 59.2 % (36.0-66.0); RBC 5.67 mil/uL (4.50-6.00); RDW 14.6 % (10.5-14.5); WBC 4.5 thou/uL (4.0-11.0)
[2020-06-25 16:15] LABS: ANION GAP 11 mmol/L (7-16); BUN 26 mg/dL (7-18); CALCIUM 9.6 mg/dL (8.5-10.1); CHLORIDE 106 mmol/L (98-107); CO2 26 mmol/L (21-32); CREATININE 1.3 mg/dL (0.7-1.3); GLUCOSE 100 mg/dL (74-106); SODIUM 143 mmol/L (136-145)
[2020-06-25 16:25] LABS: ALBUMIN 3.7 g/dL (3.4-5.0); DIRECT BILIRUBIN 0.2 mg/dL (<0.1-0.2); MAGNESIUM 2.3 mg/dL (1.8-2.4); PHOSPHORUS 3.5 mg/dL (2.5-4.9); SGOT 21 U/L (15-37); SGPT 25 U/L (30-65); TOTAL BILIRUBIN 0.7 mg/dL (0.2-1.0); TROPONIN-I <0.06 ng/mL (<0.06)
[2020-06-25 18:08] LABS: URINE BILIRUBIN NEGATIVE (Negative); URINE BLOOD TRACE (Negative); URINE CLARITY CLEAR; URINE COLOR YELLOW; URINE GLUCOSE-RANDOM* NEGATIVE (Negative); URINE KETONES NEGATIVE (Negative); URINE LEUKOCYTES-REFLEX NEGATIVE (Negative); URINE NITRITE-REFLEX NEGATIVE (Negative); URINE PROTEIN (DIPSTICK) NEGATIVE (Negative); URINE UROBILINOGEN 0.2 E.U./dl (0.2-1.0)
[2020-06-25] MEDS ORDERED: ZOFRAN ODT4 MG PO (18:28)
[2020-06-25 18:46] VITALS: BP 168/97
--- NOTE | 2020-06-26 09:07 | EKG ---
[place] [address] [place] [place] [address] ELECTROCARDIOGRAM REPORT Name: GUY NUNEZ Room #: [facility]#: [id number] Admission: 06/25/20 Attend Phys: Discharge: 06/25/20 Date of : 35 Report #: [id number] [facility] ED Test Date: 2020-06-25 Test Time: 15:45:22 Pat Name: GUY NUNEZ Department: Room: Gender: Pest Control Service Technician: : 1935 Requested By: Tomas Mallory Order Number: [id number] MD: Richard Cohn Measurements Intervals [place] Rate: 60 P: -14 [place]: 185 QRS: -11 QRSD: 102 T: 23 QT: 426 QTc: 426 Interpretive Statements Sinus rhythm No significant abnormality Compared to ECG 01/14/2020 16:55:42 No significant change was found Electronically Signed On 06-26-2020 9:07:43 CDT by Richard Cohn [email or web address] <ELECTRONICALLY SIGNED> By: Richard Cohn MD, [facility] 06/26/20 0907 1545 1545 Richard Cohn MD, FACC /EPI
== END 2020-06-25 18:53 | disposition home or self-care (01) ==
LOC: ER 14:49
PROVIDERS: Emergency Medicine
DX: I71.4 Abdominal aortic aneurysm, without rupture (principal); R42 Dizziness and giddiness; R10.30 Lower abdominal pain, unspecified; J98.11 Atelectasis; I10 Essential (primary) hypertension; E78.5 Hyperlipidemia, unspecified; Z79.899 Other long term (current) drug therapy; Z79.82 Long term (current) use of aspirin

== ENCOUNTER 2020-09-06 15:03 | Emergency (ER) | payer OTHER ==
[~2020-09-06] VITALS: Ht 188 cm; Wt 122.5 kg
[2020-09-06 17:09] LABS: ABSOLUTE NEUTROPHILS 2.3 thou/uL (1.4-8.2); BASOPHILS 0.7 % (0.0-2.0); EOSINOPHILS 4.6 % (0.0-3.0); HEMATOCRIT 48.9 % (42.0-52.0); LYMPHOCYTES 20.7 % (24.0-44.0); MCH 29.1 pg (26.0-34.0); MCHC 32.7 g/dL (28.0-37.0); MCV 88.8 fL (80.0-100.0); MONOCYTES 18.1 % (1.0-8.0); PLATELET COUNT 143 thou/uL (150-400); POLYS 55.9 % (36.0-66.0); RBC 5.51 mil/uL (4.50-6.00); RDW 14.5 % (10.5-14.5); WBC 4.2 thou/uL (4.0-11.0)
[2020-09-06 17:17] LABS: ANION GAP 6 mmol/L (7-16); BUN 30 mg/dL (7-18); CALCIUM 9.5 mg/dL (8.5-10.1); CHLORIDE 106 mmol/L (98-107); CO2 29 mmol/L (21-32); CREATININE 1.4 mg/dL (0.7-1.3); GLUCOSE 85 mg/dL (74-106); POTASSIUM 4.2 mmol/L (3.5-5.1); SODIUM 141 mmol/L (136-145)
[2020-09-06 17:25] LABS: TROPONIN-I <0.06 ng/mL (<0.06)
[2020-09-06 19:15] VITALS: BP 156/87
--- NOTE | 2020-09-08 14:20 | EKG ---
[facility] [place] [address] ELECTROCARDIOGRAM REPORT Name: GUY NUNEZ Room #: [facility]#: [id number] Admission: 09/06/20 Attend Phys: Discharge: 09/06/20 Date of : 35 Report #: [id number] [facility] ED Test Date: 2020-09-06 Test Time: 15:15:09 Pat Name: GUY NUNEZ Department: Room: Gender: Special Class Welder: BRIGID : 1935 Requested By: Valeri Ayala Order Number: [id number] MD: Richard Cohn Measurements Intervals [place] Rate: 61 P: -39 [place]: 176 QRS: -21 QRSD: 100 T: 51 QT: 413 QTc: 416 Interpretive Statements Sinus rhythm Probable left atrial enlargement Borderline left axis deviation Abnormal R-wave progression, early transition Compared to ECG 06/25/2020 15:45:22 No significant changes Electronically Signed On 09-08-2020 14:20:36 CDT by Richard Cohn [email or web address] <ELECTRONICALLY SIGNED> By: Richard Cohn MD, [facility] 09/08/20 1420 1515 1515 Richard Cohn MD, [facility] /EPI
== END 2020-09-06 19:15 | disposition home or self-care (01) ==
LOC: ER 15:03
PROVIDERS: Emergency Medicine
DX: T50.991A Poisoning by other drugs, medicaments and biological substances, accidental (unintentional), initial encounter (principal); R07.89 Other chest pain; E78.00 Pure hypercholesterolemia, unspecified; I10 Essential (primary) hypertension; E11.9 Type 2 diabetes mellitus without complications; Z86.73 Personal history of transient ischemic attack (TIA), and cerebral infarction without residual deficits; Y92.89 Other specified places as the place of occurrence of the external cause

== ENCOUNTER 2020-11-14 12:55 | Emergency (ER) | payer OTHER ==
[~2020-11-14] VITALS: Ht 188 cm; Wt 96.2 kg
[2020-11-14 17:11] VITALS: BP 166/103
--- NOTE | 2020-11-15 07:32 | EKG ---
[place] [address] [employer] [place] [address] ELECTROCARDIOGRAM REPORT Name: GUY NUNEZ Room #: [facility]#: [id number] Admission: 11/14/20 Attend Phys: Discharge: 11/14/20 Date of : 35 Report #: [id number] [facility] ED Test Date: 2020-11-14 Test Time: 13:34:00 Pat Name: GUY NUNEZ Department: Room: Gender: Outreach Worker: PAULA : 1935 Requested By: Cam Mason Order Number: [id number] MD: Mahesh Trivedi Measurements Intervals [place] Rate: 56 P: -7 [place]: 170 QRS: -14 QRSD: 100 T: 49 QT: 445 QTc: 430 Interpretive Statements Sinus rhythm Probable left atrial enlargement Abnormal R-wave progression, early transition Compared to ECG 09/06/2020 15:15:09 No significant changes Electronically Signed On 11-15-2020 7:32:25 CDT by Mahesh Trivedi [email or web address] <ELECTRONICALLY SIGNED> By: Mahesh Trivedi MD, [facility] 11/15/20 0732 1334 133 Mahesh Trivedi MD, FAC /EPI
== END 2020-11-14 17:11 | disposition home or self-care (01) ==
LOC: ER 12:55
DX: M62.81 Muscle weakness (generalized) (principal); I10 Essential (primary) hypertension; E78.00 Pure hypercholesterolemia, unspecified; Z86.73 Personal history of transient ischemic attack (TIA), and cerebral infarction without residual deficits